=== PATIENT | female | born 1960 | race Two or more races ===

== ENCOUNTER 2022-04-25 06:16 | Day surgery (SDC) | payer OTHER ==
[~2022-04-25] VITALS: Ht 154.9 cm; Wt 58.1 kg
[~2022-04-25 06:16] MED LIST: CITRACAL + D M1 EACH PO; DOLOGESIC 500-1 EACH PO; GABAPENTIN400 MG PO; LIPITOR20 MG PO; PEPCID AC20 MG PO; VITAMIN E400 UNI7 PO; ZANAFLEX4 M1 PO
[2022-04-25] MEDS ORDERED: NEURONTIN300 MG PO (08:50)
[2022-04-25] MEDS ORDERED: PERCOCET 5-3251 EACH PO (08:51)
[2022-04-25] MEDS ORDERED: DERMOPLAST PAIN78 GM TOP (08:51)
[2022-04-25] MEDS ORDERED: KETO10TA2 PO (08:52)
== END 2022-04-25 11:55 | disposition home or self-care (01) ==
LOC: CIR.AMB 06:16
PROVIDERS: ATTEND Surgery
DX: K62.0 Anal polyp (principal); K64.4 Residual hemorrhoidal skin tags; K60.0 Acute anal fissure; Z20.822 Contact with and (suspected) exposure to COVID-19